=== PATIENT | female | born 1995 | race Caucasian/White ===

== ENCOUNTER 2016-08-19 21:26 | Emergency (ER) | payer BC ==
[2016-08-19] MEDS ORDERED: KETOROLAC TROME10 MG PO (23:38)
[2016-08-20 00:15] VITALS: BP 118/67
== END 2016-08-20 00:15 | disposition home or self-care (01) ==
LOC: ED 21:26
DX: A08.39 Other viral enteritis (principal); R10.84 Generalized abdominal pain; F17.210 Nicotine dependence, cigarettes, uncomplicated
CPT/HCPCS: J1885; J2060; J7030

== ENCOUNTER → 2019-08-03 | Outpatient (CLI) | payer BC ==
[~2019-08-03] MED LIST: KETOROLAC TROME10 MG PO
[2019-08-03 17:55] LABS: ALBUMIN 4.3 g/dL (3.5-5.0)
[2019-08-03 17:56] LABS: CALCIUM 9.3 mg/dL (8.3-10.5)
[2019-08-03 17:59] LABS: TOTAL BILIRUBIN 0.3 mg/dL (0.2-1.2)
[2019-08-04 20:02] LABS: T3 TOTAL 78 ng/dL (87-178)
== END ==
LOC: LAB 16:55
PROVIDERS: Family Medicine
DX: Z32.01 Encounter for pregnancy test, result positive (principal); E03.9 Hypothyroidism, unspecified

== ENCOUNTER → 2019-08-04 | Outpatient (CLI) | payer BC | LOC: RAD 07:47 | DX: Z32.01 Encounter for pregnancy test, result positive (principal); Z3A.01 Less than 8 weeks gestation of pregnancy ==

== ENCOUNTER 2022-05-02 18:01 | Emergency (ER) | payer OTHER ==
[2022-05-02 18:05] VITALS: BP 118/89
[2022-05-02 18:26] LABS: URINE APPEARANCE CLEAR; URINE BILIRUBIN NEGATIVE (NEGATIVE); URINE BLOOD 250 ery/uL (NEGATIVE); URINE COLOR YELLOW; URINE GLUCOSE NEGATIVE (NEGATIVE); URINE KETONE NEGATIVE (NEGATIVE); URINE LEUKOCYTE ESTERASE TRACE (NEGATIVE); URINE NITRATE NEGATIVE (NEGATIVE); URINE PROTEIN(semi-quant) TRACE (NEGATIVE); URINE UROBILINOGEN NORMAL (NORMAL)
[2022-05-02 18:27] LABS: URINE MUCUS PRESENT (NOT PRESENT)
== END 2022-05-02 18:50 | disposition home or self-care (01) ==
LOC: ED 18:01
PROVIDERS: Physician Assistant
DX: M54.50 Low back pain, unspecified (principal); R30.0 Dysuria; Z28.310 Unvaccinated for COVID-19
CPT/HCPCS: J1885